=== PATIENT | female | born 1945 | race Caucasian/White ===

== ENCOUNTER 2016-10-04 16:17 | Emergency (ER) | payer MEDICARE, OTHER | END 2016-10-04 16:21 | disposition left against medical advice (07) | LOC: ER 16:17 | DX: Z53.20 Procedure and treatment not carried out because of patient's decision for unspecified reasons (principal) ==

== ENCOUNTER 2018-11-23 07:59 | Day surgery (SDC) | payer MEDICARE ==
[~2018-11-23 07:59] MED LIST: ACETAMINOPHEN 1,000 MG/100 ML BTL IVPB ONE; SCOPOLAMINE 1 PATCH TDSY TD ONE
[2018-11-23] MEDS ORDERED: LIDOCAINE 2% MDV (20MG/ML) 20ML VIAL IV ONE (08:00)
[2018-11-23] MEDS ORDERED: PROPOFOL 10 MG/ML VIAL IV ONE (08:00)
[2018-11-23] MEDS ORDERED: MIDAZOLAM HCL 2MG/2ML VIAL IV ONE (08:00)
[2018-11-23] MEDS ORDERED: FENTANYL PF 100MCG/2ML VIAL IV ONE (08:00)
[2018-11-23] MEDS ORDERED: RINGERS SOLUTION,LACTATED 1,000 ML IV ONE (08:20)
[2018-11-23] MEDS ORDERED: BUPIVACAINE 0.25% W/EPI MPF 30ML VIAL SQ ONE (10:15)
--- NOTE | 2018-11-24 08:10 | Operative Note ---
DATE OF SURGERY: 11/23/2018 SURGEON: Charli Ricardo DO PREOPERATIVE DIAGNOSIS: Suprapubic mass. POSTOPERATIVE DIAGNOSIS: Suprapubic mass. OPERATION: Excision of suprapubic mass measuring 6 x 4 cm in the subcu. INDICATION: The patient is a 71-year-old female who presented to office with pain and bulging in her suprapubic region right along the lines of her mons pubis. She had a discrete mass here. 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 We did discuss excision. Risks, benefits, and alternatives were discussed. Risks include bleeding, infection, acute or chronic pain, recurrence. She understands this fully. Thereafter, consent was signed and questions answered. PROCEDURE: The patient was taken to the operating room and placed in a supine position. Local with IV sedation was given per the department of anesthesia. The patient's suprapubic region was prepped and draped in the usual fashion. At this time, the area around the mass was anesthetized with a total of 10 mL of 0.25% Sensorcaine with epinephrine. A 4 cm incision was made. This was carried down to the capsule of a rather large lipoma. This was dissected free from surrounding tissue with blunt dissection. This was then passed off the field. This did measure 6 x 4 cm into the subcu. The wound was then closed with 3-0 and 4-0 Vicryl. The patient tolerated the procedure well. CC: DO RUTHIE Bloom
== END 2018-11-23 10:52 | disposition home or self-care (01) ==
LOC: SUR 07:59
PROVIDERS: ATTEND Surgery
DX: D17.1 Benign lipomatous neoplasm of skin and subcutaneous tissue of trunk (principal); I10 Essential (primary) hypertension; E78.00 Pure hypercholesterolemia, unspecified; E11.9 Type 2 diabetes mellitus without complications
CPT/HCPCS: J7120

== ENCOUNTER 2018-12-02 08:46 | Emergency (ER) | payer MEDICARE ==
--- NOTE | 2018-12-02 09:02 | Emergency Department Record ---
History of Present Illness - General Chief complaint: Nausea, Vomiting, Diarrhea Stated complaint: LOOSE STOOLS/WEAK Time Seen by Provider: 12/02/18 09:01 Source: Patient, RN notes reviewed - History of Present Illness Initial comments: patient had diarrhea and 6weeks ago and diagnosised with dirverticulitis and given an antibiotic and she said the diarrhea got better and she had a lipoma removed by Dr Ricardo in the suprapubic area and that is healing nicely. The diarrhea got worse about one week ago. She denies vomiting and drinking fluids nicely and not eating food because it goes right through her. Dr. James is setting up a Dr. Willingham appointment. No abdominal pain with palpation of the abd. No URI symptoms no dysuria no cough chest pain or dyspnea. - Related Data Home Medications Medication Instructions Recorded Confirmed Last Taken Clonazepam 2 mg PO DAILY 12/02/18 12/02/18 12/02/18 Lisinopril/Hydrochlorothiazide 20 mg PO DAILY 12/02/18 12/02/18 12/02/18 [Lisinopril-Hctz 20-25 mg Tab] Lovastatin 20 mg PO DAILY 12/02/18 12/02/18 12/02/18 Sitagliptin Phos/Metformin HCl 50 mg PO DAILY 12/02/18 12/02/18 12/02/18 [Janumet 50-500 mg Tablet] Previous Rx's Medication Instructions Recorded Loperamide HCl [Imodium A-D] 2 mg PO TID PRN #14 tablet 12/02/18 Sulfamethoxazole/Trimethoprim 1 each PO BID #20 tablet 12/02/18 [Bactrim Ds Tablet] Allergies Allergy/AdvReac Type Severity Reaction Status Date / Time ciprofloxacin [From Cipro] Allergy rash Verified 12/02/18 08:54 ciprofloxacin HCl Allergy rash Verified 12/02/18 08:54 [From Cipro] codeine AdvReac vomiting Verified 12/02/18 08:54 Review of Systems Reviewed: No additional complaints except as noted below Constitutional: Reports: As per HPI. Denies: Chills, Fever, Malaise, Night sweats, Weakness, Weight change Eyes: Reports: As per HPI. Denies: Eye discharge, Eye pain, Photophobia, Vision change ENT: Reports: As per HPI. Denies: Congestion, Dental pain, Ear pain, Epistaxis, Hearing loss, Throat pain Respiratory: Reports: As per HPI. Denies: Cough, Dyspnea, Hemoptysis, Stridor, Wheezes Cardiovascular: Reports: As per HPI. Denies: Arrhythmia, Chest pain, Dyspnea on exertion, Edema, Murmurs, Orthopnea, Palpitations, Paroxysmal nocturnal dyspnea, Rheumatic Fever, Syncope Endocrine: Reports: As per HPI. Denies: Fatigue, Heat or cold intolerance, Polydipsia, Polyuria Gastrointestinal: Reports: As per HPI, Diarrhea. Denies: Abdominal pain, Consti pation, Hematemesis, Hematochezia, Melena, Nausea, Vomiting Genitourinary: Reports: As per HPI. Denies: Abnormal menses, Discharge, Dyspareunia, Dysuria, Frequency, Hematuria, Incontinence, Retention, Urgency Musculoskeletal: Reports: As per HPI. Denies: Arthralgia, Back pain, Gout, Joint swelling, Myalgia, Neck pain Skin: Reports: As per HPI. Denies: Bruising, Change in color, Change in hair/nails, Lesions, Pruritus, Rash Neurological: Reports: As per HPI. Denies: Abnormal gait, Confusion, Headache, Numbness, Paresthesias, Seizure, Tingling, Tremors, Vertigo, Weakness Psychiatric: Reports: As per HPI. Denies: Anxiety, Auditory hallucinations, Depression, Homicidal thoughts, Suicidal thoughts, Visual hallucinations Hematological/Lymphatic: Reports: As per HPI. Denies: Anemia, Blood Clots, Easy bleeding, Easy bruising, Swollen glands Past Medical History - SOCIAL HISTORY Smoking Status: Never smoker - RESPIRATORY Hx Respiratory Disorders: No - CARDIOVASCULAR Hx Cardio Disorders: Yes Hx Hypertension: Yes (ON MEDS GOOD CONTROL) - NEURO Hx Neuro Disorders: No - GI Hx GI Disorders: Yes Hx Wt Loss/Wt Gain: Yes (20 LB LOSS 1 YEAR AGO) - Hx Genitourinary Disorders: No - ENDOCRINE Hx Endocrine Disorders: Yes Hx Diabetes: Yes (DX'D 18 MONTHS AGO) Comment:: DOESNT CHECK BLOOD SUGAR A1C 5.3 - MUSCULOSKELETAL Hx Musculoskeletal Disorders: No - PSYCH Hx Psych Problems: No - HEMATOLOGY/ONCOLOGY Hx Hematology/Oncology Disorders: No Family Medical History Hx Cancer: Mother, Brother/Sister *Cancer Comment: MOM BREAST SISTER LEUKEMIA Hx Heart Disease: Brother/Sister *Heart Comment: BROTHER BORN WITH A HOLE IN HIS HEART Hx Stroke: Father Physical Exam - General General Appearance: Alert, Oriented x3, Cooperative, No acute distress - Head Head exam: Normal inspection - Eye Eye exam: Normal appearance, PERRL Pupils: Normal accommodation - ENT ENT exam: Normal exam, Mucous membranes moist, Normal external ear exam, Normal orophraynx, TM's normal bilaterally Ear exam: Normal external inspection. negative: External canal tenderness Nasal Exam: Normal inspection. negative: Discharge, Sinus tenderness Mouth exam: Normal external inspection, Tongue normal Teeth exam: Normal inspection. negative: Dental caries Throat exam: Normal inspection. negative: Tonsillar erythema, Tonsillar exudate - Neck Neck exam: Normal inspection, Full ROM. negative: Tenderness - Respiratory Respiratory exam: Normal lung sounds bilaterally. negative: Respiratory distress - Cardiovascular Cardiovascular Exam: Regular rate, Normal rhythm, Normal heart sounds - GI/Abdominal GI/Abdominal exam: Soft, Normal bowel sounds. negative: Tenderness - Rectal Rectal exam: Deferred - exam: Deferred - Extremities Extremities exam: Normal inspection, Full ROM, Normal capillary refill. negative: Tenderness - Back Back exam: Reports: Normal inspection, Full ROM. Denies: Muscle spasm, Rash noted, Tenderness - Neurological Neurological exam: Alert, Normal gait, Oriented X3, Reflexes normal - Psychiatric Psychiatric exam: Normal affect, Normal mood - Skin Skin exam: Dry, Intact, Normal color, Warm Medical Decision Making - Data Complexity MDM Data: X-Ray Ordered and/or Reviewed (Noth), EKG Ordered and/or Reviewed (no acute findings, right kidney small. no signs of appendicitis but she has an apendolith,No bowel obstructions) - Lab Data Result diagrams: 12/02/18 09:20 12/02/18 09:20 Disposition Clinical Impression: Diarrhea Qualifiers: Diarrhea type: unspecified type Qualified Code(s): R19.7 - Diarrhea, unspecified UTI (urinary tract infection) Qualifiers: Urinary tract infection type: acute cystitis Hematuria presence: without hematuria Qualified Code(s): N30.00 - Acute cystitis without hematuria Disposition: Home, Self-Care Condition: (1) Good Instructions: Urinary Tract Infection in Women (ED), Chronic Diarrhea (ED) Additional Instructions: follow up with Dr James in one week continue fluids and keep appointment with Dr Tarsha BACK one pill threee times a day bactrim DS twice a day Prescriptions: Sulfamethoxazole/Trimethoprim [Bactrim Ds Tablet] 1 each PO BID #20 tablet Loperamide HCl [Imodium A-D] 2 mg PO TID PRN #14 tablet PRN Reason: Diarrhea Forms: Patient Portal Access Time of Disposition: 14:00 Quality - Quality Measures Quality Measures: N/A - Blood Pressure Screening Does Patient Have Any of the Following: No Blood Pressure Classification: Hypertensive Reading Systolic Measurement: 118 Diastolic Measurement: 94 Screening for High Blood Pressure: < Pre-Hypertensive BP, F/U Documented > [G8950] Pre-Hypertensive Follow-up Interventions: Referral to alternative/primary care provider.
[2018-12-02] MEDS ORDERED: 0.9 % SODIUM CHLORIDE 1,000 ML BAG IV ONE (09:08)
[2018-12-02 09:34] LABS: ABSOLUTE NEUTROPHIL COUNT 4.23; EOS % 3.1 % (0-6); GRAN % 54.5 % (47-80); HEMATOCRIT 43.2 % (35.0-47.0); HEMOGLOBIN 14.2 gm/dl (11.6-16.0); LYMPH % 34.1 % (16-45); MEAN CELL VOLUME 90.4 fl (81-97); MEAN CORPUSCULAR HEMOGLOBIN 29.7 pg (27-33); MEAN CORPUSCULAR HGB CONC 32.9 g/dl (32-36); MEAN PLATELET VOLUME 9.6 fl (7.4-10.4); MONO % 7.3 % (0-9); PLATELET COUNT 388 K/uL (130-400); RED BLOOD COUNT 4.78 M/uL (3.80-5.40); RED CELL DISTRIBUTION WIDTH 12.9 % (11.5-14.5); WHITE BLOOD COUNT W/O DIFF 7.8 K/uL (4.2-12.2)
[2018-12-02 09:47] LABS: BLOOD UREA NITROGEN 11 mg/dL (8-23); CREATININE 0.7 mg/dL (0.5-0.9); EST GLOMERULAR FILTRATION RATE > 60 mL/min
[2018-12-02 09:48] LABS: LIPASE 39 U/L (13-60); TOTAL PROTEIN 7.4 g/dL (6.6-8.7)
[2018-12-02 09:50] LABS: GLUCOSE,RANDOM 118 mg/dL (74-109)
[2018-12-02 09:52] LABS: ALT/SGPT 20 U/L (<33)
[2018-12-02 09:53] LABS: ALBUMIN 4.5 g/dL (4.0-5.0); ALKALINE PHOSPHATASE 91 U/L (35-104); AST/SGOT 21 U/L (10.0-35.0)
[2018-12-02 09:58] LABS: BILIRUBIN,DIRECT < 0.2 mg/dL (0-0.3)
[2018-12-02 11:21] LABS: URINE APPEARANCE CLEAR; URINE BILIRUBIN NEGATIVE (NEGATIVE); URINE BLOOD NEGATIVE (NEGATIVE); URINE COLOR YELLOW; URINE GLUCOSE (UA) NEGATIVE (NEGATIVE); URINE KETONE NEGATIVE (NEGATIVE); URINE LEUKOCYTE ESTERASE LARGE (NEGATIVE); URINE NITRITE NEGATIVE (NEGATIVE); URINE PROTEIN NEGATIVE (NEGATIVE); URINE UROBILINOGEN 0.2 E.U./dL (0.20 - 1.00)
[2018-12-02 11:32] LABS: URINE RBC 0 - 2 (NONE SEEN); URINE SQUAMOUS EPITHELIAL CELL 0 - 2 /hpf
[2018-12-02 11:33] LABS: URINE BACTERIA FEW
[2018-12-02] MEDS ORDERED: TMP/SMZ 160MG/800MG TAB PO ONE (13:57)
[2018-12-02] MEDS ORDERED: LOPERAMIDE 2 MG CAPSULE PO ONE (13:58)
--- NOTE | 2018-12-03 12:53 | CT SCAN REPORT ---
EXAM: CT OF THE ABDOMEN AND PELVIS WITHOUT CONTRAST HISTORY: DIARRHEA FOR FOUR WEEKS. PRIOR INGUINAL HERNIA SURGERY. TECHNIQUE: Axial CT scan of the abdomen and pelvis was performed without oral or IV contrast at the referring physician's request. Comparison: No prior CT with which to compare. FINDINGS: No calcified gallstones are seen within the gallbladder. No intrarenal calculi identified in either kidney. No hydronephrosis or hydroureter seen on either side as such the entire course of both ureters in their nondilated state is somewhat difficult to follow throughout the retroperitoneum and pelvis, however, no definite ureteral calculus seen on either side and no bladder calculus evident. Evaluation of the bowel and viscera is extremely limited without oral or IV contrast. Given this limitation, no definite hepatic or splenic mass evident. There is probably a small accessory spleen immediately inferior to the spleen itself. No definite adrenal, pancreatic, or renal mass identified. The uterus is tilted slightly towards the left. There is prominent diverticulosis in the sigmoid colon. Mild diverticulosis scattered elsewhere throughout the colon as well including the proximal colon, however, no definite diverticulitis identified. The appendix is visualized and appears of normal caliber although there do appear to be a couple fairly prominent calcified appendicolith's at the base of the appendix. No additional findings to suggest acute appendicitis at this time, however. Some mild dependent atelectasis in the lung bases posteriorly. No free intraperitoneal air or free intraperitoneal fluid evident. Mild spurring in the lumbar spine and mild facet joint arthropathy in the lower lumbar spine as well. The right kidney is somewhat small compared with the left as seen on the coronal images in particular which could be sequela of renal artery stenosis. IMPRESSION: 1. NO DEFINITE URINARY TRACT CALCULI OR HYDRONEPHROSIS EVIDENT. THE RIGHT KIDNEY IS SOMEWHAT SMALLER THAN THE LEFT, NONSPECIFIC, ALTHOUGH COULD BE RELATED TO RIGHT SIDED RENAL ARTERY STENOSIS. 2. SCATTERED DIVERTICULOSIS THROUGHOUT THE COLON, BUT NO DEFINITE DIVERTICULITIS IDENTIFIED. 3. A COUPLE CALCIFIED APPENDICOLITH'S AT THE BASE OF THE APPENDIX, BUT NO DEFINITE ACUTE APPENDICITIS CURRENTLY. 4. NO FREE AIR OR FREE FLUID EVIDENT. JOB NUMBER: [id number]
== END 2018-12-02 14:22 | disposition home or self-care (01) ==
LOC: ER 08:46
DX: R19.7 Diarrhea, unspecified (principal); N30.00 Acute cystitis without hematuria; I10 Essential (primary) hypertension; E11.9 Type 2 diabetes mellitus without complications; Z98.890 Other specified postprocedural states; Z79.84 Long term (current) use of oral hypoglycemic drugs
CPT/HCPCS: 99284 ×2; 96360; 83690; 85025; 80076; 80048; 81001; 89055; 87427; 82272; 87493; 74176; J3490; J7030